=== PATIENT | male | born 1990 | race Caucasian/White ===

== ENCOUNTER 2018-08-08 10:49 | Day surgery (SDC) | payer BC ==
[2018-08-08] VITALS (10 sets, daily range): BP systolic 115–127; BP diastolic 65–77
[~2018-08-08] VITALS: Ht 195.6 cm; Wt 92.5 kg
--- NOTE | 2018-08-08 07:52 | Pre-Procedure Note/Attestation ---
Pre-Procedure Note/Attestation Complete Prior to Procedure Planned Procedure: bilateral Procedure Narrative: septo rhinoplasty septal spur and nasal obstruction Indications for Procedure Pre-Operative Diagnosis: difficulty breathing with impacted spur right side with headaches and difficulty breathing Attestation I attest that I discussed the nature of the procedure; its benefits; risks and complications; and alternatives (and the risks and benefits of such alternatives ), prior to the procedure, with the patient (or the patient's legal residential sales representative). I attest that, if there was a reasonable possibility of needing a blood transfusion, the patient (or the patient's legal residential sales representative) was given the [facility] standardized written summary, pursuant to the [employer]k[place] Blood Safety Act ([place] Health and Safety Code # 1645, as amended). I attest that I re-evaluated the patient just prior to the surgery and that there has been no change in the patient's H&P, except as documented below: Juan Garcia MD Aug 08, 2018 07:52
[2018-08-08] MEDS ORDERED: NKM (11:16)
[2018-08-08] MEDS ORDERED: Midazolam 2mg/2ml Inj ONE (11:24)
[2018-08-08] MEDS ORDERED: fentaNYL 100 mcg/2 mL IV ONE (11:24)
[2018-08-08] MEDS ORDERED: Ketorolac 30mg Inj ONE (11:25)
[2018-08-08] MEDS ORDERED: Lidocaine 1% MPF 10mg/ml 5ml ONE (11:25)
[2018-08-08] MEDS ORDERED: Propofol 200mg/20ml IV ONE (11:25)
[2018-08-08] MEDS ORDERED: Cocaine HCl 4% 4ml vial TOPIC ONE (11:33)
[2018-08-08] MEDS ORDERED: Oxymetazoline 0.05% Na Spray 30ml NASAL ONE (11:34)
[2018-08-08] MEDS ORDERED: Bacitracin Oint 15gm Tube TOPIC ONE (11:34)
[2018-08-08] MEDS ORDERED: Lidocaine 1% 10mg/ml/EPI 0.01mg/ml 50ml INJ ONE (11:34)
[2018-08-08] MEDS ORDERED: Sterile Water Irrig 1000ml IRRIG ONE (12:00)
[2018-08-08] MEDS ORDERED: LR 1000ml ONE (12:00)
[2018-08-08] MEDS ORDERED: NS Irrig 1000ml ONE (12:00)
[2018-08-08] MEDS ORDERED: Lidocaine 1% 10mg/ml/Epi 0.005mg/ml 30ml vial INJ ONE (12:12)
[2018-08-08] MEDS ORDERED: LR 1000ml 1,000 ML IVLG SCH (12:35)
--- NOTE | 2018-08-08 12:35 | Anethesia Preoperative Eval ---
Anesthesia Pre-op PMH/ROS General Date of Evaluation: Aug 08, 2018 Time of Evaluation: 11:50 Anesthesiologist: Stefan ASA Score: ASA 2 Mallampati Score Class I : Soft palate, uvula, fauces, pillars visible Class II: Soft palate, uvula, fauces visible Class III: Soft palate, base of uvula visible Class IV: Only hard plate visible Mallampati Classification: Class II Surgeon: Sadaf Diagnosis: Nasal septum deviation Surgical Procedure: Rhinoplasty Anesthesia History: none Family History: no anesthesia problems Allergies: Coded Allergies: No Known Allergies (Unverified , 08/08/18) Medications: see eMAR Past Medical History Cardiovascular: Denies: HTN, CAD, MA, valve dz, arrhythmia, other Pulmonary: Denies: asthma, COPD, MEJIA, other Gastrointestinal/Genitourinary: Reports: GERD - mild; Denies: CRI, ESRD, other Neurologic/Psychiatric: Reports: depression/anxiety Endocrine: Denies: DM, hypothyroidism, steroids, other HEENT: Denies: cataract (L), cataract (R), glaucoma, SHOSHONE-BANNOCK (L), SHOSHONE-BANNOCK (R), other Hematology/Immune: Denies: anemia, DVT, bleeding disorder, other Musculoskeletal/Integumentary: Denies: OA, RA, DJD, DDD, edema, other PMH Narrative: as above PSxH Narrative: None Anesthesia Pre-op Phys. Exam Physician Exam Last Vital Signs Date Time Temp Pulse Resp B/P (MAP) Pulse Ox O2 Delivery O2 Flow Rate FiO2 08/08/18 11:31 97.5 50 18 118/70 (86) 98 97.5 08/08/18 11:13 Room Air Constitutional: NAD Neurologic: CN 2-12 intact Cardiovascular: RRR, no M/R/G Respiratory: CTA Airway Exam Mallampati Score: Class II MO: full Neck: flexible ROM: full Teeth: intact Dentures: no upper, no lower Anesthesia Pre-op A/P Labs see chart Studies Pre-op Studies: EKG - NSR Risk Assessment & Plan Assessment: ASA 2 Plan: GA with LMA PONV prevention Status Change Before Surgery: No Pre-Antibiotics Drug: Ancef 2gr. Given Within 1 Hr of Incision: Yes Time Given: 12:10 Jay Aviles MD Aug 08, 2018 12:35
[2018-08-08] MEDS ORDERED: Midazolam 2mg/2ml Inj IVP PRN (12:45)
[2018-08-08] MEDS ORDERED: Meperidine 50mg/ml Inj(FOR RIGORS ONLY) IV PRN (12:45)
[2018-08-08] MEDS ORDERED: fentaNYL 100 mcg/2 mL IV PRN (12:45)
[2018-08-08] MEDS ORDERED: DiphenhydrAMINE 50mg/ml Inj IVP PRN (12:45)
[2018-08-08] MEDS ORDERED: Metoclopramide 10mg/2ml Inj IVP PRN (12:45)
--- NOTE | 2018-08-08 13:42 | Immediate Post-Op Evaluation ---
Immediate Post-Op Evalulation Immediate Post-Op Evalulation Procedure: Rhinoplasty Date of Evaluation: Aug 08, 2018 Time of Evaluation: 13:41 IV Fluids: 1000 Blood Products: none Estimated Blood Loss: 100 Urinary Output: none Blood Pressure Systolic: 132 Blood Pressure Diastolic: 73 Pulse Rate: 78 Respiratory Rate: 20 O2 Sat by Pulse Oximetry: 99 Temperature (Fahrenheit): 97.4 Pain Score (1-10): 2 Nausea: No Vomiting: No Complications none Patient Status: reacts, patent, none Hydration Status: adequate Jay Aviles MD Aug 08, 2018 13:42
--- NOTE | 2018-08-08 13:48 | Brief Operative Note ---
Immediate Post Operative Note Operative Note Pre-op Diagnosis: difficulty breathing with impacted spur right side with headaches and difficulty breathing Procedure: out fracture turbinate to release right side synechia also septoplasty Post-op Diagnosis: same as pre-op Surgeon: romina Anesthesia: general Specimen: yes Complications: none Condition: stable Fluids: none Estimated Blood Loss: minimal Drains: none Implant(s) used?: No Juan Garcia MD Aug 08, 2018 13:48
--- NOTE | 2018-08-08 14:19 | 48 Hour Post Anesthesia Eval ---
Post Anesthesia Evaluation Procedure: Rhinoplasty Date of Evaluation: Aug 08, 2018 Time of Evaluation: 14:18 Blood Pressure Systolic: 116 0: 74 Pulse Rate: 68 Respiratory Rate: 20 Temperature (Fahrenheit): 97.6 O2 Sat by Pulse Oximetry: 98 Airway: patent Nausea: No Vomiting: No Pain Intensity: 2 Hydration Status: adequate Cardiopulmonary Status: stable Mental Status/LOC: patient returned to baseline Follow-up Care/Observations: n/a Post-Anesthesia Complications: none Follow-up care needed: ready to discharge Jay Aviles MD Aug 08, 2018 14:19
--- NOTE | 2018-08-08 20:00 | Operative Note - Dictated ---
DATE OF OPERATION: 08/08/2018 SURGEON: Juan Garcia M.D. PREOPERATIVE DIAGNOSIS: Spur on the right side with high nasal valve and a nasal callus. POSTOPERATIVE DIAGNOSIS: The patient has a history of nasal obstruction on the right side with chronic headaches on the right side. The patient was shown many photos of the nose, but was aware of the risks, complications, and alternative methods of treatment and was given general anesthesia with intravenous D5 and half-normal saline running in the left upper extremity. The area was prepped and draped in the usual manner for a rhinoplasty, also for a septoplasty, and release of synechiae, and turbinate reduction of fractured turbinate, and lowering of the nasal valve area too. The patient was injected with 2% Xylocaine and 1:100,000 epinephrine using a 27-gauge needle and the dentoalveolar nerve, infraorbital nerve, and ethmoidal nerve around the nose and also laterally at the junction of the lateral column of the nasal bone. The patient was injected at the IC areas of both nasal airways and a 15 blade made an incision at IC incision and came down to the anterior portion of the septum. The septum was trimmed distally approximately 3 or 4 mm was removed. We then trimmed the dorsum of the nose after placing an , used the 15 blade to make the incision in the cartilage. We then took the large chisel into the wall of the hump. There was no open roof. A straight clamp was used to remove the nasal bone cartilage junction tissue and rasp was used to smooth out any refining any that would need. We then turned our attention to the small amount of low lateral cartilage on the left side that need to be trimmed about 7 mm . Next, we turned our attention to the airway again and noted that the spur was impacted up against the turbinate that was outfractured and released and allow for a good airway. A wedge block completely resulted. I hesitated to use packing at this point and did give a drip dressing. All the IC incisions were then closed using a 5-0 chromic suture and also 5-0 chromic was used to suture distally at the junction where the septal cartilage was removed. It was approximately 25 mL blood loss. The patient will need a drip dressing. Juan Garcia M.D. DR: GUERLINE JOB#: [id number] CC:
== END 2018-08-08 14:40 | disposition home or self-care (01) ==
LOC: SUR 10:49
DX: J34.89 Other specified disorders of nose and nasal sinuses (principal); R51 Headache; K21.9 Gastro-esophageal reflux disease without esophagitis; F32.9 Major depressive disorder, single episode, unspecified; F41.9 Anxiety disorder, unspecified
CPT/HCPCS: 30420; 30930; J0690; J1885; J2175; J2250; J2405; J2704; J3010; 94003; 94150